=== PATIENT | male | born 1965 | race African-American/Black ===

== ENCOUNTER 2020-05-26 13:05 | Emergency (ER) | payer MEDICAID, OTHER ==
[~2020-05-26] VITALS: Ht 185.4 cm; Wt 96.0 kg
[2020-05-26] MEDS ORDERED: LEVE1000 PO (13:11)
[2020-05-26 14:30] LABS: EOSINOPHILS % 1.3 % (0.0-5.0); HEMATOCRIT. 40.3 % (42.0-52.0); HEMOGLOBIN. 13.6 g/dL (14.0-18.0); LYMPHOCYTES % 44.4 % (20.0-50.0); MEAN CORPUSCULAR HEMOGLOBIN 30.5 pg (28.0-32.0); MEAN CORPUSCULAR VOLUME 90.1 fL (80.0-94.0); MEAN PLATELET VOLUME 7.6 fl (7.4-10.4); MONOCYTES % 7.5 % (2.0-8.0); NEUTROPHILS % 45.8 % (40.0-76.0); PLATELET 160 x1000/uL (130-400); RED BLOOD CELL COUNT 4.48 mill/uL (4.7-6.1); RED CELL DISTRIBUTION WIDTH 13.3 % (11.6-14.6)
[2020-05-26 14:32] LABS: CHLORIDE 112 mEq/L (98-107)
[2020-05-26] MEDS: ONDANSETRON 4MG ODT PO ONE (14:52)
[2020-05-26] MEDS: LEVETIRACETAM 500MG TABLET PO ONE (14:52)
[2020-05-26 18:29] VITALS: BP 134/96
== END 2020-05-26 18:30 | disposition home or self-care (01) ==
LOC: ER 13:05
DX: Z03.818 Encounter for observation for suspected exposure to other biological agents ruled out (principal); G40.909 Epilepsy, unspecified, not intractable, without status epilepticus; R07.89 Other chest pain; R06.02 Shortness of breath; R10.13 Epigastric pain; R11.0 Nausea
CPT/HCPCS: 36415; 71045; 80053; 82542; 82962; 83605; 83880; 84484; 85025; 85610; 93005; 99285; C9803; Q0162; U0003

== ENCOUNTER 2020-09-11 19:04 | Inpatient (IN) | payer MEDICAID ==
[~2020-09-11] VITALS: Ht 185.4 cm; Wt 98.0 kg
[~2020-09-11 19:04] MED LIST: LEVE1000 PO
[2020-09-11] MEDS ORDERED: LEVETIRACETAM 1000MG PREMIX 100 ML IV ONE (22:00)
[2020-09-11 23:08] LABS: BASOPHILS % 1.7 % (0.0-2.0); EOSINOPHILS % 0.6 % (0.0-5.0); HEMATOCRIT. 41.5 % (42.0-52.0); HEMOGLOBIN. 14.4 g/dL (14.0-18.0); LYMPHOCYTES % 46.1 % (20.0-50.0); MEAN CORPUSCULAR HEMOGLOBIN 31.2 pg (28.0-32.0); MEAN CORPUSCULAR VOLUME 89.8 fL (80.0-94.0); MONOCYTES % 12.2 % (2.0-8.0); NEUTROPHILS % 39.4 % (40.0-76.0); PLATELET 149 x1000/uL (130-400); RED BLOOD CELL COUNT 4.62 mill/uL (4.7-6.1); RED CELL DISTRIBUTION WIDTH 13.6 % (11.6-14.6)
[2020-09-11 23:15] LABS: CHLORIDE 108 mEq/L (98-107)
[2020-09-11] MEDS ORDERED: ASPIRIN 325MG TABLET PO NR (23:30)
[2020-09-12 09:00] VITALS: BP 141/99
[2020-09-12] MEDS ORDERED: ACETAMINOPHEN 325MG TABLET PO PRN (11:00)
[2020-09-12] MEDS ORDERED: LORAZEPAM 2MG/ML CPJ IV PRN ×2 (11:00→16:30)
[2020-09-12] MEDS ORDERED: HYDROCODONE/ACETAMINOPHEN 5/325MG TABLET PO PRN (11:00)
[2020-09-12] MEDS ORDERED: ONDANSETRON HCL 4MG/2ML INJ IV PRN (11:00)
[2020-09-12] MEDS ORDERED: ASPIRIN 81MG TABLET PO SCH (18:30)
[2020-09-12] MEDS ORDERED: LEVETIRACETAM 500MG TABLET PO NR (18:45)
[2020-09-12] MEDS ORDERED: GABAPENTIN 300MG CAPSULE PO NR (18:45)
[2020-09-12] MEDS ORDERED: LEVETIRACETAM 500MG TABLET PO SCH (21:00)
[2020-09-13] MEDS ORDERED: GABAPENTIN 300MG CAPSULE PO SCH (06:00)
[2020-09-13] MEDS ORDERED: LEVETIRACETAM 500MG TABLET PO SCH (09:00)
== END 2020-09-12 19:20 | disposition left against medical advice (07) | DRG 53 ==
LOC: ER 19:04 → 6EST 09-12 01:41 → ENRESERV 09-12 08:20
PROVIDERS: ADMIT Internal Medicine; ATTEND Internal Medicine
DX: G40.909 Epilepsy, unspecified, not intractable, without status epilepticus (principal); G93.6 Cerebral edema; E87.8 Other disorders of electrolyte and fluid balance, not elsewhere classified; D49.6 Neoplasm of unspecified behavior of brain; I10 Essential (primary) hypertension; Z53.29 Procedure and treatment not carried out because of patient's decision for other reasons; N43.3 Hydrocele, unspecified; Z79.899 Other long term (current) drug therapy; I69.351 Hemiplegia and hemiparesis following cerebral infarction affecting right dominant side; R53.1 Weakness
CPT/HCPCS: 36415; 70551; 71045; 80053; 83880; 84484; 85025; 92610; 93005; 93970; 99285; J1953

== ENCOUNTER 2020-12-02 12:49 | Emergency (ER) | payer MEDICAID ==
[~2020-12-02] VITALS: Ht 185.4 cm; Wt 98.0 kg
[2020-12-02 13:09] VITALS: BP 143/98
[2020-12-02] MEDS ORDERED: KETOROLAC 30MG/ML VIAL IM ONE (13:45)
[2020-12-02] MEDS ORDERED: AMOX-494 MT (13:56)
[2020-12-02] MEDS ORDERED: T3 PO (13:56)
[2020-12-02] MEDS ORDERED: IBUP-2029 MT (13:56)
== END 2020-12-02 14:21 | disposition home or self-care (01) ==
LOC: ER 12:49
DX: K02.9 Dental caries, unspecified (principal); I10 Essential (primary) hypertension; Z98.890 Other specified postprocedural states
CPT/HCPCS: 99283; Z7610; J1885

== ENCOUNTER 2021-10-18 14:52 | Emergency (ER) | payer MEDICAID ==
[~2021-10-18] VITALS: Ht 185.4 cm; Wt 100.0 kg
[~2021-10-18 14:52] MED LIST changes: +AMOX-494 MT; +IBUP-2029 MT; +T3 PO
[2021-10-18] MEDS ORDERED: ASPIRIN 325MG EC TABLET PO ONE (15:15)
[2021-10-18 15:34] LABS: BASOPHILS % 0.6 % (0.0-2.0); HEMATOCRIT. 40.5 % (42.0-52.0); HEMOGLOBIN. 13.5 g/dL (14.0-18.0); MEAN CORPUSCULAR VOLUME 95.9 fL (80.0-94.0); MEAN PLATELET VOLUME 8.6 fl (7.4-10.4); MONOCYTES % 10.1 % (2.0-8.0); NEUTROPHILS % 35.3 % (40.0-76.0); PLATELET 126 x1000/uL (130-400); RED BLOOD CELL COUNT 4.23 mill/uL (4.7-6.1); RED CELL DISTRIBUTION WIDTH 13.4 % (11.6-14.6)
[2021-10-18 15:40] LABS: CHLORIDE 111 mEq/L (98-107)
[2021-10-18 16:06] LABS: ETHANOL BLOOD < 10 mg/dL
[2021-10-18] MEDS ORDERED: KETOROLAC 30MG/ML VIAL IV ONE (17:15)
[2021-10-18 17:48] VITALS: BP 116/77
== END 2021-10-18 18:44 | disposition home or self-care (01) ==
LOC: ER 14:52
DX: R07.89 Other chest pain (principal); I10 Essential (primary) hypertension; Z86.73 Personal history of transient ischemic attack (TIA), and cerebral infarction without residual deficits; Z79.899 Other long term (current) drug therapy
CPT/HCPCS: 36415; 71045; 80053; 80320; 83690; 83880; 84484; 85025; 93005; 96374; 99285; J1885; G0480

== ENCOUNTER 2021-11-11 13:16 | Emergency (ER) | payer MEDICAID, OTHER ==
[~2021-11-11] VITALS: Ht 190.5 cm; Wt 82.0 kg
[2021-11-11 13:28] VITALS: BP 133/96
[2021-11-11] MEDS ORDERED: DIVA500T3 PO (14:47)
== END 2021-11-11 15:15 | disposition home or self-care (01) ==
LOC: ER 13:16
DX: Z76.0 Encounter for issue of repeat prescription (principal); Z86.73 Personal history of transient ischemic attack (TIA), and cerebral infarction without residual deficits; I10 Essential (primary) hypertension
CPT/HCPCS: 99283

== ENCOUNTER 2022-01-27 11:37 | Emergency (ER) | payer MEDICAID, OTHER ==
[~2022-01-27] VITALS: Ht 185.4 cm; Wt 89.0 kg
[~2022-01-27 11:37] MED LIST changes: +DIVA500T3 PO
[2022-01-27] MEDS ORDERED: HYDROCODONE/ACETAMINOPHEN 5/325MG TABLET PO ONE (12:45)
[2022-01-27 12:58] LABS: BASOPHILS % 0.5 % (0.0-2.0); EOSINOPHILS % 1.4 % (0.0-5.0); HEMATOCRIT. 42.5 % (42.0-52.0); HEMOGLOBIN. 14.2 g/dL (14.0-18.0); LYMPHOCYTES % 52.9 % (20.0-50.0); MEAN CORPUSCULAR HEMOGLOBIN 31.6 pg (28.0-32.0); MEAN CORPUSCULAR VOLUME 94.5 fL (80.0-94.0); NEUTROPHILS % 31.2 % (40.0-76.0); PLATELET 162 x1000/uL (130-400); RED BLOOD CELL COUNT 4.49 mill/uL (4.7-6.1); RED CELL DISTRIBUTION WIDTH 13.8 % (11.6-14.6)
[2022-01-27 13:08] LABS: CHLORIDE 110 mEq/L (98-107)
[2022-01-27 13:26] LABS: CLARITY URINE CLEAR (CLEAR); COLOR URINE YELLOW (YELLOW); KETONES URINE TRACE (NEGATIVE); LEUKOCYTE ESTERASE URINE 1+ (NEGATIVE); NITRITE URINE NEGATIVE (NEGATIVE); OCCULT BLOOD URINE NEGATIVE (NEGATIVE); PROTEIN URINE TRACE (NEGATIVE); SPECIFIC GRAVITY URINE 1.021 (1.005-1.030)
[2022-01-27] MEDS ORDERED: SULF1TAB48 MT ×3 (14:57→15:16)
[2022-01-27] MEDS ORDERED: HYDR-4001 MT ×3 (14:57→15:16)
[2022-01-27 15:21] VITALS: BP 115/64
== END 2022-01-27 15:26 | disposition home or self-care (01) ==
LOC: ER 11:37
DX: M48.061 Spinal stenosis, lumbar region without neurogenic claudication (principal); I10 Essential (primary) hypertension; Z86.73 Personal history of transient ischemic attack (TIA), and cerebral infarction without residual deficits
CPT/HCPCS: 36415; 72131; 80053; 81003; 85025; 99284

== ENCOUNTER 2022-03-04 15:58 | Emergency (ER) | payer MEDICAID, OTHER ==
[~2022-03-04] VITALS: Ht 185.4 cm; Wt 88.0 kg
[~2022-03-04 15:58] MED LIST changes: +HYDR-4001 MT; +SULF1TAB48 MT
[2022-03-04 16:25] VITALS: BP 124/73
[2022-03-04] MEDS ORDERED: HYDROCODONE/ACETAMINOPHEN 5/325MG TABLET PO ONE (19:30)
[2022-03-04] MEDS ORDERED: LEVETIRACETAM 500MG TABLET PO ONE (19:30)
[2022-03-04] MEDS ORDERED: DEXAMETHASONE 4MG TABLET PO ONE (19:30)
[2022-03-04] MEDS ORDERED: GABAPENTIN 300MG CAPSULE PO ONE (19:30)
== END 2022-03-04 21:00 | disposition left against medical advice (07) ==
LOC: ER 15:58
DX: S00.03XA Contusion of scalp, initial encounter (principal); I10 Essential (primary) hypertension; M25.561 Pain in right knee; R26.89 Other abnormalities of gait and mobility; F19.10 Other psychoactive substance abuse, uncomplicated; W01.10XA Fall on same level from slipping, tripping and stumbling with subsequent striking against unspecified object, initial encounter; Y93.89 Activity, other specified; Z86.011 Personal history of benign neoplasm of the brain; Z98.890 Other specified postprocedural states; Z99.89 Dependence on other enabling machines and devices; Z91.14 Patient's other noncompliance with medication regimen; Z91.19 Patient's noncompliance with other medical treatment and regimen; Y92.018 Other place in single-family (private) house as the place of occurrence of the external cause
CPT/HCPCS: 70450; 73562; 82962; 99284; J8540

== ENCOUNTER 2022-08-08 05:29 | Emergency (ER) | payer MEDICAID, OTHER ==
[~2022-08-08] VITALS: Ht 185.4 cm; Wt 99.2 kg
[2022-08-08 05:59] VITALS: BP 134/94
== END 2022-08-08 07:10 | disposition left against medical advice (07) ==
LOC: ER 05:29
DX: R07.89 Other chest pain (principal); R51.9 Headache, unspecified; J45.909 Unspecified asthma, uncomplicated; E78.00 Pure hypercholesterolemia, unspecified; I10 Essential (primary) hypertension; Z79.899 Other long term (current) drug therapy
CPT/HCPCS: 93005; 99283; Z7610

== ENCOUNTER 2022-08-11 05:20 | Emergency (ER) | payer MEDICAID ==
[~2022-08-11] VITALS: Ht 185.4 cm; Wt 93.0 kg
[2022-08-11] MEDS ORDERED: LORAZEPAM 1MG TABLET PO ONE (06:15)
[2022-08-11 06:26] LABS: BASOPHILS % 1.5 % (0.0-2.0); EOSINOPHILS % 2.3 % (0.0-5.0); HEMATOCRIT. 43.2 % (42.0-52.0); HEMOGLOBIN. 14.1 g/dL (14.0-18.0); LYMPHOCYTES % 31.6 % (20.0-50.0); MEAN CORPUSCULAR HEMOGLOBIN 30.1 pg (28.0-32.0); MEAN CORPUSCULAR VOLUME 92.1 fL (80.0-94.0); MEAN PLATELET VOLUME 7.8 fl (7.4-10.4); MONOCYTES % 9.5 % (2.0-8.0); NEUTROPHILS % 55.1 % (40.0-76.0); PLATELET 168 x1000/uL (130-400); RED BLOOD CELL COUNT 4.68 mill/uL (4.7-6.1)
[2022-08-11 07:36] LABS: CHLORIDE 114 mEq/L (98-107)
[2022-08-11 08:04] VITALS: BP 128/90
== END 2022-08-11 09:28 | disposition home or self-care (01) ==
LOC: ER 05:20
DX: R00.2 Palpitations (principal); I10 Essential (primary) hypertension; J45.909 Unspecified asthma, uncomplicated; E78.5 Hyperlipidemia, unspecified; Z98.890 Other specified postprocedural states
CPT/HCPCS: 36415; 71045; 80053; 83880; 84484; 85025; 93005; 99285; Z7610

== ENCOUNTER 2022-11-02 06:21 | Emergency (ER) | payer MEDICAID ==
[~2022-11-02] VITALS: Ht 188 cm; Wt 90.6 kg
[2022-11-02 06:26] VITALS: BP 131/89
== END 2022-11-02 07:59 | disposition left against medical advice (07) ==
LOC: ER 06:21
DX: Z53.21 Procedure and treatment not carried out due to patient leaving prior to being seen by health care provider (principal)
CPT/HCPCS: 99281